=== PATIENT | female | born 1995 | race Caucasian/White ===

== ENCOUNTER 2016-11-17 05:21 | Emergency (ER) | payer MEDICAID ==
[2016-11-17 05:33] VITALS: BMI 31.2
[2016-11-17 05:36] VITALS: BP 132/85; PULSE 95; TEMP 97.5
[2016-11-17] MEDS ORDERED: HYDROCODONE 5 MG/ACETAMIN 325 MG TAB PO ONE (05:55)
[2016-11-17] MEDS ORDERED: ONDANSETRON HCL 4 MG ODT TAB PO ONE (05:55)
--- NOTE | 2016-11-17 05:58 | EDPRACDOC ---
- General Information Chief Complaint: Earache Stated Complaint: LT EAR PAIN Time Seen by Provider: 11/17/16 05:47 Information Source: Patient, Family Home Medications: Home Medications Lisdexamfetamine Dimesylate [Vyvanse] 80 mg PO DAILY 08/04/14 Sumatriptan Succinate 100 mg PO DAILY PRN 08/04/14 TOPIRAMATE (Anticonvulsant) [Topamax] 25 mg PO DAILY 08/04/14 Trazodone HCl [Desyrel] 200 mg PO QHS 03/23/16 Ondansetron [Zofran Odt] 4 mg PO Q6H PRN #15 tab.rapdis 05/10/16 Oxcarbazepine [Trileptal] 150 mg PO BID 05/10/16 Amoxicillin Trihydrate [Amoxicillin] 500 mg PO TID #30 tab 11/17/16 Hydrocodone Bit/Acetaminophen [Hydrocodon-Acetaminophen 5-325] 1 tab PO Q6H PRN #9 tab 11/17/16 Promethazine [Phenergan] 25 mg PO Q6 PRN #12 tab 11/17/16 Allergies/Adverse Reactions: Allergies Allergy/AdvReac Type Severity Reaction Status Date / Time No Known Allergies Allergy Verified 07/03/16 22:02 - History of Present Illness Onset: 1 week Location: left ear Context: Reports: Spontaneous Onset, URI Symptoms Recently Treated Ear Infection: Reports: No Pain Severity: Reports: Severe Associated Signs & Symptoms: Reports: Runny Nose, Toothache, Other (vomiting). Denies: Fever ED Past Medical History - History Reviewed Yes Nurses notes reviewed and agree except as marked - Patient Medical History Psychological History: Reports: Depression, Bipolar Disorder - Social Medical History Smoking Status: Heavy tobacco smoker (5 or more cigarettes/day or daily pipe/ cigar) EDM Review of Systems - Review of Systems ROS Negative Except as Marked: Yes All systems reviewed and were negative except as marked - Physical Exam Constitutional: Alert (Awake), Other (she appears uncomfortable) Oriented to: Time, Person, Place Last recorded Vital Signs: Last Vital Signs Temp 97.5 F 11/17/16 05:30 Pulse 95 11/17/16 05:30 Resp 22 11/17/16 05:30 BP 132/85 11/17/16 05:30 Pulse Ox 96 01/04/17 05:30 Oxygen Pulse Oxygen Saturation 96 O2 Device Room Air Oxygen Flow Rate Fraction of Inspired Oxygen ( FIO2) - HEENT Head: Normal ( normocephalic) Eye Exam: Normal (PERRL, EOMI, Sclera white) Oropharynx: Normal (Pharynx:Moist without exudate,Gums-no swelling) Tympanic Membrane: Normal ENT EAC: Normal TMJ: Normal Nose: No Symptoms Reported (septum midline) Neck: Normal (FROM, trachea at midline) - Respiratory/Cardiovascular Respiratory: Normal - CTA (BBS clear to auscultation without adventitious sounds ) Cardiovascular: Normal (RRR without murmur, gallop or rub) - GI Auscultation: Normal (NABS) Palpation: Normal (Soft,No rebound or guarding, non distended) Tenderness: Non tender De Leon's Sign: Negative - Musculoskeletal Back: Normal (Non-Tender) Extremities: Normal (Normal tone, Pulses 2+ No cyanosis or edema, FROM) - Integumentary Skin: Normal, Warm, Dry Lymphatics: Normal (no adenopathy) - Neurologic Memory Impaired: Normal Motor Function: Normal (Normal tone, Pulses 2+ No cyanosis or edema, FROM) Cranial Nerve: Normal (CN II-X11 intact sensation, strength 5/5) Cerebellar: Normal Mood Description: Normal Perception: Normal Decision Time to Discharge: 05:57 - Departure Yes I personally saw and evaluated the patient. Disposition: Home Condition: Stable Final Diagnosis: Ear pain, left Upper respiratory infection Qualifiers: URI type: acute nasopharyngitis (common cold) Qualified Code(s): J00 - Acute nasopharyngitis [common cold] Vomiting Qualifiers: Vomiting type: unspecified Vomiting Intractability: non-intractable Instructions: Eustachian Tube Dysfunction (GEN), Rhinosinusitis (ED), Acute Nausea and Vomiting (ED) Education/Counseling Given To: Patient, Family Member Education/Counseling Given Regarding: Diagnosis, Treatment, Follow Up Referrals: Clarissa Gunn PA [Primary Care Provider] - One Week Vipul Streeter DO [Staff Physician] - 1-2 days Prescriptions: Amoxicillin Trihydrate [Amoxicillin] 500 mg PO TID #30 tab Hydrocodone Bit/Acetaminophen [Hydrocodon-Acetaminophen 5-325] 1 tab PO Q6H PRN #9 tab PRN Reason: Pain Promethazine [Phenergan] 25 mg PO Q6 PRN #12 tab PRN Reason: Nausea/Vomiting
== END 2016-11-17 06:08 | disposition home or self-care (01) ==
LOC: ED 05:21
DX: H92.02 Otalgia, left ear (principal); J00 Acute nasopharyngitis [common cold]; R11.10 Vomiting, unspecified; F17.200 Nicotine dependence, unspecified, uncomplicated
CPT/HCPCS: 99283; J3490